=== PATIENT | male | born 1975 | race Caucasian/White ===

== ENCOUNTER 2017-01-16 10:10 | Emergency (ER) | payer BC ==
[~2017-01-16] VITALS: Ht 172.7 cm; Wt 86.3 kg
[2017-01-16 10:17] VITALS: BP 149/95
[2017-01-16] MEDS ORDERED: FLUORESCEIN OPHTHALMIC 1 MG STRIP ONE (10:41)
[2017-01-16] MEDS ORDERED: PROPARACAINE OPHTH 0.5%, 15ML ONE (10:41)
== END 2017-01-16 11:19 | disposition home or self-care (01) ==
LOC: ED 10:55
DX: H11.32 Conjunctival hemorrhage, left eye (principal); F17.200 Nicotine dependence, unspecified, uncomplicated
CPT/HCPCS: 99283

== ENCOUNTER 2018-07-27 07:43 | Emergency (ER) | payer BC ==
[~2018-07-27] VITALS: Ht 172.7 cm; Wt 88.0 kg
[2018-07-27 07:48] VITALS: BP 160/107
--- NOTE | 2018-07-27 07:55 | NUR ---
LEFT HAND PAIN AND SWELLING @0715, TOOLBOX FELL ON LEFT HAND. LEFT HAND SWELLING AND ABRASION NOTED, PAINFUL MOVEMENT OF FINGERS. CAP REFILL IS BRISK TO INDEX AND MIDDLE FINGER OF LEFT HAND. ICE APPLIED. EVALUATED BY LETI FLORES. XRAY PENDING.
[2018-07-27] MEDS ORDERED: HYDROcodone/APAP 5/325 TABLET ONE (07:59)
[2018-07-27] MEDS ORDERED: DIPH,PERTUSS(ACELL),TET VAC/PF 0.5 ML IM-VACC ONE ×2 (08:00)
[2018-07-27] MEDS ORDERED: HYDROcodone/APAP 5/325 TABLET PO ONE (08:00)
--- NOTE | 2018-07-27 08:07 | NUR ---
MEDICATED PER ORDER, TETANUS GIVEN WITH INFORMATIONAL HANDOUT.
--- NOTE | 2018-07-27 08:36 | NUR ---
Flakito FLORES at bedside to discuss POC with pt.
== END 2018-07-27 09:00 | disposition home or self-care (01) ==
LOC: ED 08:58
DX: S60.222A Contusion of left hand, initial encounter (principal); S60.512A Abrasion of left hand, initial encounter; W40.8XXA Explosion of other specified explosive materials, initial encounter; Y93.89 Activity, other specified; Y92.009 Unspecified place in unspecified non-institutional (private) residence as the place of occurrence of the external cause; Y99.8 Other external cause status
CPT/HCPCS: 90471; 90715; 99283

== ENCOUNTER 2018-07-30 15:09 | Emergency (ER) | payer BC ==
[~2018-07-30] VITALS: Ht 175.3 cm; Wt 86.5 kg
--- NOTE | 2018-07-30 16:05 | NUR ---
PT WANTING TO LEAVE, PT STATES "WILL DO LABS OUTPT, I NEED TO LEAVE. DISCUSSED WITH DR RAY. PT TO BE DC'D.
[2018-07-30 16:11] VITALS: BP 132/99
== END 2018-07-30 16:13 | disposition home or self-care (01) ==
LOC: ED 15:53
DX: I10 Essential (primary) hypertension (principal)
CPT/HCPCS: 93005; 99283

== ENCOUNTER 2018-08-11 20:28 | Emergency (ER) | payer BC ==
[~2018-08-11] VITALS: Ht 175.3 cm; Wt 84.0 kg
--- NOTE | 2018-08-11 20:44 | NUR ---
PT GOT SPLINTER IN RIGHT WRIST AREA SEVERAL HOURS AGO. HE IS NOT CERTAIN IF HE WAS ABLE TO PULL IT OUT COMPLETELY
[2018-08-11] MEDS ORDERED: HYDROcodone/APAP 5/325 TABLET PO ONE (21:00)
[2018-08-11] MEDS ORDERED: HYDROcodone/APAP 5/325 TABLET ONE (21:11)
[2018-08-11 21:26] VITALS: BP 145/89
== END 2018-08-11 21:28 | disposition home or self-care (01) ==
LOC: ED 21:22
DX: S61.431A Puncture wound without foreign body of right hand, initial encounter (principal); I10 Essential (primary) hypertension; F17.200 Nicotine dependence, unspecified, uncomplicated; W20.8XXA Other cause of strike by thrown, projected or falling object, initial encounter; Y93.89 Activity, other specified; Y92.009 Unspecified place in unspecified non-institutional (private) residence as the place of occurrence of the external cause; Y99.8 Other external cause status
CPT/HCPCS: 99283

== ENCOUNTER 2018-11-09 10:41 | Emergency (ER) | payer BC ==
[~2018-11-09] VITALS: Ht 172.7 cm; Wt 87.9 kg
[2018-11-09 10:50] VITALS: BP 147/106
== END 2018-11-09 12:23 | disposition home or self-care (01) ==
LOC: ED 12:10
DX: K11.21 Acute sialoadenitis (principal); I10 Essential (primary) hypertension; F17.200 Nicotine dependence, unspecified, uncomplicated
CPT/HCPCS: 99283

== ENCOUNTER 2018-11-10 20:18 | Emergency (ER) | payer BC ==
[~2018-11-10] VITALS: Ht 172.7 cm; Wt 88.1 kg
[2018-11-10 21:18] VITALS: BP 115/72
== END 2018-11-10 21:58 | disposition home or self-care (01) ==
LOC: ED 21:26
DX: G50.0 Trigeminal neuralgia (principal); H92.01 Otalgia, right ear; I10 Essential (primary) hypertension; F17.210 Nicotine dependence, cigarettes, uncomplicated
CPT/HCPCS: 96372; 99283; J1885; J7512

== ENCOUNTER 2019-06-03 16:28 | Emergency (ER) | payer BC ==
[~2019-06-03] VITALS: Ht 175.3 cm; Wt 86.5 kg
[2019-06-03 16:50] VITALS: BP 107/76
[2019-06-03] MEDS ORDERED: HYDROcodone/APAP 5/325 TABLET ONE (17:17)
[2019-06-03] MEDS ORDERED: HYDROcodone/APAP 5/325 TABLET PO ONE (17:30)
== END 2019-06-03 18:16 | disposition home or self-care (01) ==
LOC: ED 18:10
DX: S83.92XA Sprain of unspecified site of left knee, initial encounter (principal); I10 Essential (primary) hypertension; X58.XXXA Exposure to other specified factors, initial encounter; Y93.39 Activity, other involving climbing, rappelling and jumping off; Y92.89 Other specified places as the place of occurrence of the external cause; Y99.0 Civilian activity done for income or pay
CPT/HCPCS: 29505; 99283

== ENCOUNTER 2020-07-13 01:32 | Emergency (ER) | payer BC ==
[~2020-07-13] VITALS: Ht 175.3 cm; Wt 88.2 kg
[2020-07-13 01:33] VITALS: BP 162/99
[2020-07-13] MEDS ORDERED: ACETAMINOPHEN 500 MG TABLET ONE (01:57)
[2020-07-13] MEDS ORDERED: ACETAMINOPHEN 500 MG TABLET PO ONE (02:00)
== END 2020-07-13 02:06 | disposition home or self-care (01) ==
LOC: ED 02:00
DX: H60.501 Unspecified acute noninfective otitis externa, right ear (principal); R09.81 Nasal congestion; I10 Essential (primary) hypertension; F17.200 Nicotine dependence, unspecified, uncomplicated
CPT/HCPCS: 99283